=== PATIENT | female | born 1965 | race Caucasian/White ===

== ENCOUNTER 2017-03-05 22:16 | Inpatient (IN) | payer MEDICAID ==
[~2017-03-05] VITALS: Ht 162.6 cm; Wt 86.2 kg
[2017-03-05 22:20] VITALS: BP_SYST 129
--- NOTE | 2017-03-05 22:24 | NUR ---
Placed in room 07 . Placed on patient monitor, blood pressure machine and pulse oximeter. To gown for exam. Side rails up. Report given to CATHERINE Rinaldi.
--- NOTE | 2017-03-05 23:14 | NUR ---
ER MD Harrison at bedside evaluating the patient
--- NOTE | 2017-03-05 23:30 | NUR ---
Patient to ER C/O R & L lower abdominal quadrants pain 8/10 for the past 3 days. Patient states that she laos has N/V and "feels hot" Patient states pain is worse when walking. AAOx4, unlabored breathing, no signs of acute distress.
[2017-03-05 23:32] LABS: BILIRUBIN,URINE NEGATIVE (NEGATIVE); BLOOD, URINE NEGATIVE (NEGATIVE); CLARITY/URINE SL HAZY (CLEAR); COLOR,URINE YELLOW (YELLOW); GLUCOSE,URINE NEGATIVE (NEGATIVE); KETONES,URINE NEGATIVE (NEGATIVE); LEUKOCYTE ESTERASE ,URINE NEGATIVE (NEGATIVE); NITRITE, URINE NEGATIVE (NEGATIVE); PH,URINE 5.5 (5.0-8.0); PROTEIN URINE TRACE (NEGATIVE)
[2017-03-05 23:51] LABS: BACTERIA,URINE MODERATE /HPF (None Seen); MUCUS,URINE 1+ /LPF (None Seen); RBC,URINE 0-3 /HPF (0-3)
--- NOTE | 2017-03-06 00:02 | NUR ---
Patient off the unit for CT via gurney
[2017-03-06 00:04] LABS: BASOPHILS % (AUTO) 0.3 % (0.0-2.0); EOSINOPHILS # (AUTO) 0.2 K/uL (0.0-0.4); EOSINOPHILS % (AUTO) 2.6 % (0.0-4.0); HEMATOCRIT 39.2 % (36-48); HEMOGLOBIN 12.9 g/dL (12.0-16.0); LYMPHOCYTES # (AUTO) 2.1 K/uL (1.0-5.5); LYMPHOCYTES % (AUTO) 27.3 % (20.5-51.5); MEAN CORPUSCULAR HEMOGLOBIN 30 pg (27-31); MEAN CORPUSCULAR HGB CONC 33 % (32-36); MEAN CORPUSCULAR VOLUME 92 fL (79.0-98.0); MONOCYTES # (AUTO) 0.6 K/uL (0.0-1.0); MONOCYTES % (AUTO) 7.8 % (1.7-9.3); NEUTROPHILS # (AUTO) 4.7 K/uL (1.8-7.7); PLATELET COUNT (AUTO) 330 K/uL (130-430); RED BLOOD CELL COUNT(AUTO) 4.26 MIL/uL (4.2-6.2); RED CELL DISTRIBUTION WIDTH 12.8 % (9.0-15.0); WHITE BLOOD COUNT (AUTO) 7.6 K/uL (4.8-10.8)
[2017-03-06 00:07] LABS: CALCIUM 9.3 mg/dL (8.4-11.0); CREATININE 0.8 mg/dL (0.55-1.30)
[2017-03-06 00:13] LABS: PROTHROMBIN TIME 10.5 SECS (9.5-12.5)
[2017-03-06 00:15] LABS: ALBUMIN 3.5 g/dL (3.4-4.8); TOTAL BILIRUBIN 0.2 mg/dL (0.0-1.0); TOTAL PROTEIN, SERUM 7.4 g/dL (6.4-8.3)
--- NOTE | 2017-03-06 00:35 | NUR ---
# 20 gauge angiocath placed to left ac. Use of asceptic technique. Opsite placed over site. Blood return noted. Flushed with 10 cc of normal saline. No evidence of infiltration noted. Patient tolerated well.
[2017-03-06] MEDS ORDERED: MORPHINE 2 MG/ML INJ. SYRINGE IVP ONE (00:45)
--- NOTE | 2017-03-06 00:45 | NUR ---
Medication reconciliation completed with information provided by - verbal from patient. Any prior medication reconciliation on file was reviewed and corrected.
[2017-03-06] MEDS ORDERED: ACET325T53 PO (00:47)
[2017-03-06] MEDS ORDERED: PHEN97.511 PO (00:47)
[2017-03-06] MEDS ORDERED: ONDANSETRON HCL 4 MG/2 ML VIAL IVP ONE (01:00)
--- NOTE | 2017-03-06 01:12 | NUR ---
Patient will be admitted to care of DR Helton. Admitted to [facility] in unit. Will go to room 135. Belongings list completed. Summary report printed. Report will be given at bedside.
[2017-03-06] MEDS ORDERED: KETOROLAC TROMETHAMINE 15 MG VIAL IVP PRN (01:15)
[2017-03-06] MEDS ORDERED: MORPHINE 2 MG/ML INJ. SYRINGE IVP PRN (01:15)
[2017-03-06] MEDS ORDERED: ACETAMINOPHEN 325 MG TABLET PO PRN (01:15)
[2017-03-06] MEDS ORDERED: ONDANSETRON HCL 4 MG/2 ML VIAL IVP PRN (01:15)
--- NOTE | 2017-03-06 01:20 | NUR ---
Transfer to [facility]. IV present no sign or symptom of infiltration.
--- NOTE | 2017-03-06 01:29 | NUR ---
ADMISSION: The patient, ALEXANDRU MISHRA, 51 y/o, F admitted by CONSUELO CONNER MD, was given written information regarding hospital policies, unit procedures and contact persons.
[2017-03-06 01:33] VITALS: BP_SYST 124
--- NOTE | 2017-03-06 01:38 | NUR ---
INITIAL ADMISSION NOTE Patient resting on the bed. No acute distress. Respiration even and unlabored. AO x 4. Denied of pain at this time. Skin warm and dry to touch. SL intact to LAC, no redness, no swelling. Discussed the safety issue, use call light when need help, and plan of care, verbally understanding. Safety measure maintained. Call light within reached. Bed in low position, side rails up. Will continue to monitor.
[2017-03-06] MEDS ORDERED: metroNIDAZOLE 500 mg/NS 100 ML IV ONE ×2 (02:42→03:00)
--- NOTE | 2017-03-06 03:26 | NUR ---
ROUND Patient resting on the bed with eyes closed. Respiration even and unlabored. No acute distress. Continue on Levaquin IVPB, infusing well. Safety measure maintained. Bed in low position, bed alarm on, side rails up. Call light within reached. continue to monitor.
[2017-03-06 04:22] VITALS: BP_SYST 119
--- NOTE | 2017-03-06 05:07 | NUR ---
MORPHINE GIVEN Patient c/o abdomen pain 01/17, Morphine 2mg IVP given as ordered. No acute distress. Safety measure maintained. Bed in low position, bed alarm on, side rails up. Call light within reached. Continue to monitor.
--- NOTE | 2017-03-06 06:58 | NUR ---
CLOSING NOTE Patient resting on the bed with eyes closed. No acute distress. Respiration even and unlabored. Skin warm and dry to touch. SL intact to LAC, no redness, no swelling. All needs met. Hourly rounding during shift. Safety measure maintained. Call light within reached. Bed in low position, side rails up. Will endorse to morning shift nurse.
[2017-03-06 08:00] VITALS: BP_SYST 120
--- NOTE | 2017-03-06 08:00 | NUR ---
OPENING NOTES PT IN BED, PT HAS NO PAIN, NO SOB. NO DISTRESS. IV IN L AC #20, PATENT AND INTACT. NO PAIN, NO SWELLING. PT. ENCOURAGED TO CALL FOR ASSIST AND PAIN MED. CALL LIGHT IN REACH, BED IN LOWEST POSTION. WILL CONT TO MONITOR.
--- NOTE | 2017-03-06 10:00 | NUR ---
ROUNDING NOTES, PT IN BED, PT'S DTR AT BED SIDE. PT HAS NO PAIN, NO SOB. NO DISTRESS. ENCOURAGED TO CALL FOR ASSIST AND PAIN MED. CALL LIGHT IN REACH, BED IN LOWEST POSTION. WILL CONT TO MONITOR.
--- NOTE | 2017-03-06 12:00 | NUR ---
rounding notes, pt is bed, sleeping comfortably, breathing even and unlabored. no sob, no distress. safety precaution in place. call light in reach, bed in low position. will cont to monitor.
[2017-03-06 12:04] VITALS: BP_SYST 115
--- NOTE | 2017-03-06 14:00 | NUR ---
rounding notes, pt is bed, resting comfortably, breathing even and unlabored. no sob, no distress. call light in reach, bed in lowest position. safety precaution in place. will cont to monitor.
[2017-03-06] MEDS: metroNIDAZOLE 500 mg/NS 100 ML IV SCH ×2 (14:56→21:49)
--- NOTE | 2017-03-06 16:00 | NUR ---
rounding notes, pt in bed, resting in bed. no sob, no distress. breathing even and unlabored. pt assisted to bathroom. pt has steady gait. call light in reach, bed in lowest position. will cont to monitor
[2017-03-06 16:40] VITALS: BP_SYST 119
--- NOTE | 2017-03-06 19:30 | NUR ---
initial note pt. received resting in bed. alert and oriented. no s/s of sob or distress noted. vss. pt. denies pain or nausea. family at the bedside. iv access noted to left ac, #20 no redness or swelling to the site. saline lock, flushes well. plan of care discussed with the pt., verbalizes understanding. pt educated on use of call light and use of call light encouraged. will continue to monitor for any changes. safety and fall precautions in place. call light in reach. bed in lowest locked position. alarm not on as pt. states she can ambulate with steady gait and agrees to call for assistance.
[2017-03-06 20:00] VITALS: BP_SYST 108
--- NOTE | 2017-03-06 22:05 | NUR ---
rounds pt. resting in bed. denies pain or nausea. iv abx infusing well as ordered. no adverse reactions noted. will continue to monitor for changes. safety and fall precautions in place. call light in reach, bed in lowest locked position.
[2017-03-07] VITALS: BP_SYST 110
--- NOTE | 2017-03-07 | NUR ---
rounds pt. resting in bed with eyes closed. chest rise and fall noted. no s/s of sob or distress. no facial grimacing indicating pain. will continue to monitor for changes. safety and fall precautions in place. call light in reach, bed in lowest locked position.
--- NOTE | 2017-03-07 02:14 | NUR ---
rounds pt. resting with eyes closed. breathing is even and unlabored. iv abx infusing well as ordered. no adverse reactions noted. will continue to monitor for changes. safety and fall precautions in place, call light in reach.
[2017-03-07 04:00] VITALS: BP_SYST 106
--- NOTE | 2017-03-07 04:31 | NUR ---
rounds pt resting in bed, no s/s of sob or distress noted. vitals assessed and noted to be within normal limits. pt. denies pain and nausea. all needs met at this time. will continue to monitor for changes. safety and fall precautions in place, call light in reach.
[2017-03-07] MEDS: metroNIDAZOLE 500 mg/NS 100 ML IV SCH ×2 (05:10→14:00)
--- NOTE | 2017-03-07 06:41 | NUR ---
CLOSING NOTE PT. RESTING IN BED WATCHING TELEVISION. NO S/S OF SOB OR DISTRESS NOTED. IV ABX INFUSED WELL ORDERED WITH NO ADVERSE REACTIONS NOTED. ALL NEEDS WERE MET THROUGHOUT THE SHIFT. SAFETY AND FALL PRECAUTIONS WERE MAINTAINED. WILL ENDORSE CARE TO AM NURSE. CALL LIGHT IN REACH, BED IN LOWEST LOCKED POSITION.
--- NOTE | 2017-03-07 08:00 | NUR ---
initial note pt. received resting in bed. alert and oriented. no s/s of sob or distress noted. pt. denies pain. iv access noted to left ac, #20 no redness or swelling to the site. saline lock, flushes well. verbalizes understanding. pt educated on use of call light and use of call light encouraged. will continue to monitor for any changes. safety and fall precautions in place. call light in reach. bed in lowest locked position. alarm not on as pt. states she can ambulate with steady gait and agrees to call for assistance.
--- NOTE | 2017-03-07 10:00 | NUR ---
RN rounds pt resting in bed, no s/s of sob or distress noted. pt. denies pain and nausea. all needs met at this time. will continue to monitor for changes. safety and fall precautions in place, call light in reach.
--- NOTE | 2017-03-07 12:00 | NUR ---
RN rounds pt resting in bed, no s/s of sob or distress noted. pt. denies pain and nausea. all needs met at this time. will continue to monitoring.
[2017-03-07 13:06] VITALS: BP_SYST 108
--- NOTE | 2017-03-07 14:00 | NUR ---
RN rounds pt resting in bed, no s/s of sob or distress noted. pt. denies pain and nausea. all needs met at this time. will continue to monitoring and will d/c home the pt.
[2017-03-07 14:34] VITALS: BP_SYST 100
[2017-03-07] MEDS ORDERED: METR500T PO (14:50)
[2017-03-07] MEDS ORDERED: CIPR-211 PO (14:51)
[2017-03-07] MEDS ORDERED: L.RH1CAP PO (14:53)
--- NOTE | 2017-03-07 15:20 | NUR ---
discharge note Patient given medication prescription and reconciliation form and D/C instructions. Exit Care provided. Patient verbalized understanding. MD discussed with patient the results and treatment provided. Ambulatory with steady gait for discharge to home. Patient in stable condition, ID band removed. IV catheter removed, intact and dressing applied, no active bleeding. Rx of given. Patient educated on pain management. All belongings sent with patient.
== END 2017-03-07 15:20 | disposition home or self-care (01) | DRG 244 ==
LOC: SED 22:16 → SMU 03-06 01:13
PROVIDERS: ADMIT Internal Medicine; ATTEND Internal Medicine
DX: K57.32 Diverticulitis of large intestine without perforation or abscess without bleeding (principal); E66.9 Obesity, unspecified; Z90.49 Acquired absence of other specified parts of digestive tract; Z79.1 Long term (current) use of non-steroidal anti-inflammatories (NSAID); Z68.32 Body mass index [BMI] 32.0-32.9, adult
CPT/HCPCS: 36415; 80053; 81000-TC; 82150-TC; 83690-TC; 85025; 85610-TC; 85730-TC; 87086; 96374; 96375; 99285; J1956; J2270; J2405; J3490; J7050